=== PATIENT | female | born 1945 | race Caucasian/White ===

== ENCOUNTER 2016-12-02 10:16 | Day surgery (SDC) | payer MEDICARE ==
[2016-12-01 08:53] VITALS: BMI 19.2
[~2016-12-02 10:16] MED LIST: KETOROLAC 30 MG/ML 1 ML VIAL ONE; LACTATED RINGERS 1,000 ML IV SCH; ONDANSETRON 4 MG/2 ML VIAL ONE; PROPOFOL 10 MG/ML 20 ML VIAL IV ONE; fentaNYL (PF) 50 MCG/ML 2 ML AMP ONE
[2016-12-02 10:56] VITALS: RESP 18; TEMP 97.4
[2016-12-02] MEDS ORDERED: LIDOCAINE 1% 20 ML VIAL (10MG/ML) FOR IV START INTRADERMA ONE (10:59)
[2016-12-02] MEDS ORDERED: PROPOFOL 10 MG/ML 20 ML VIAL IV ONE (12:23)
[2016-12-02] MEDS ORDERED: LIDOCAINE 1% INJ 10MG/ML (20 ML MDV) ONE (12:23)
--- NOTE | 2016-12-02 12:44 | P.PCN ---
Date of Procedure: 12/02/16 Procedure(s) Performed: Procedure: Total colonoscopy. Preoperative diagnosis: Screening for neoplasia, patient has history of polyps. Postoperative diagnosis: Sigmoid diverticulosis with no evidence of acute diverticulitis, strictures, polyps or cancer. Preparation: HalfLytely prep. Sedation: Was provided by anesthesia. Brief clinical history: The patient is 71-year-old female who is scheduled for this evaluation for screening for neoplasia, age being her risk factor as well as history of polyps. Her last exam was in 05/2011. At this time, she has no abdominal complaints, bleeding or anemia. Procedure: With the patient on her left lateral decubitus position and after informed consent and adequate sedation, the perianal area was inspected and it did not show any fissures or fistulas. There were no masses felt on digital rectal examination. The Olympus CFQ 160L video colonoscope was then inserted in the rectum in the usual fashion and advanced to the cecum. There were several diverticular orifices seen scattered in the sigmoid with no evidence of acute diverticulitis or strictures. No polyps or tumors were seen. I retroflexed the endoscope in the rectum before the endoscope was withdrawn. Low -grade internal hemorrhoids were noted with no evidence of bleeding. The patient tolerated the procedure well. Plan: The patient was reassured. She will follow-up with you as planned and I recommended repeat exam in 5 years.
[2016-12-02 13:04] VITALS: BP 124/68; PULSE 66
== END 2016-12-02 13:23 | disposition home or self-care (01) ==
LOC: ORWHC2ENDO 10:16
DX: Z12.11 Encounter for screening for malignant neoplasm of colon (principal); K57.30 Diverticulosis of large intestine without perforation or abscess without bleeding; K64.8 Other hemorrhoids; Z86.010 Personal history of colon polyps; I10 Essential (primary) hypertension; E07.9 Disorder of thyroid, unspecified; Z79.899 Other long term (current) drug therapy
CPT/HCPCS: J2405; J2001; J3010; J1885; J2704; G0105

== ENCOUNTER → 2016-12-05 | Outpatient (CLI) | payer MEDICARE ==
--- NOTE | 2016-12-08 12:03 | MM ---
Reason for exam: screening (asymptomatic). Last mammogram was performed 1 year ago. History: Patient is postmenopausal, has history of breast cancer at age 60, and had previous chest radiation therapy at age 60. Radiation therapy of the left breast, March 2006. Excisional biopsy of the left breast, December 09, 2005. Malignant left US cyst aspiration of the left breast, November 13, 2005. Malignant US left guided mammotome of the left breast, November 13, 2005. Benign core biopsy of the right breast, August 11, 1996. Benign stereotactic core biopsy of the right breast, August 11, 1996. Benign stereotactic core biopsy of the right breast, August 11, 1996. Took hormonal contraceptives for 2 years beginning at age 18. Took estrogen for 10 years beginning at age 43. Took progesterone for 10 years beginning at age 43. Physical Findings: A clinical breast exam by your physician is recommended on an annual basis and results should be correlated with mammographic findings. MG 3D Screening Mammo W/Cad Bilateral CC and MLO view(s) were taken. Prior study comparison: December 05, 2015, bilateral MG 3d diag mammo w/cad [facility]. November 15, 2014, bilateral MG diagnostic mammo w CAD [facility]. The breast tissue is heterogeneously dense. This may lower the sensitivity of mammography. Biopsy change in the left breast. No significant changes when compared with prior studies. ASSESSMENT: Benign, BI-RAD 2 RECOMMENDATION: Routine screening mammogram of both breasts in 1 year.
== END | disposition home or self-care (01) ==
LOC: RADMAMWWP 09:22
PROVIDERS: ATTEND Family Medicine
DX: Z12.31 Encounter for screening mammogram for malignant neoplasm of breast (principal)
CPT/HCPCS: 77063; G0202

== ENCOUNTER → 2018-01-12 | Outpatient (CLI) | payer MEDICARE ==
--- NOTE | 2018-01-12 14:09 | MM ---
Reason for exam: additional evaluation requested from prior study. Last mammogram was performed 1 year and 1 month ago. History: Patient is postmenopausal, has history of breast cancer at age 60, and had previous chest radiation therapy at age 60. Radiation therapy of the left breast, March 2006. Excisional biopsy of the left breast, December 09, 2005. Malignant left US cyst aspiration of the left breast, November 13, 2005. Malignant US left guided mammotome of the left breast, November 13, 2005. Benign core biopsy of the right breast, August 11, 1996. Benign stereotactic core biopsy of the right breast, August 11, 1996. Benign stereotactic core biopsy of the right breast, August 11, 1996. Took hormonal contraceptives for 2 years beginning at age 18. Took estrogen for 10 years beginning at age 43. Took progesterone for 10 years beginning at age 43. Physical Findings: Nurse did not find any significant physical abnormalities on exam. MG 3D Diag Mammo W/Cad [facility] Bilateral CC and MLO view(s) were taken. CC with magnification and ML with magnification view(s) were taken of the left breast. Prior study comparison: December 05, 2016, bilateral MG 3d screening mammo w/cad. December 05, 2015, bilateral MG 3d diag mammo w/cad [facility]. There are scattered fibroglandular densities. Finding: There are 3 grouped/clustered fine calcifications in the upper outer quadrant, middle position of the left breast at biopsy site. Post surgical changes in the left breast. These results were verbally communicated with the patient and result sheet given to the patient on 01/12/18. ASSESSMENT: Probably benign, BI-RAD 3 RECOMMENDATION: Follow-up diagnostic mammogram of the left breast in 6 months.
== END | disposition home or self-care (01) ==
LOC: RADMAMWWP 12:47
PROVIDERS: ATTEND Family Medicine
DX: Z08 Encounter for follow-up examination after completed treatment for malignant neoplasm (principal); Z85.3 Personal history of malignant neoplasm of breast
CPT/HCPCS: 77066; G0279; 77062

== ENCOUNTER → 2018-08-11 | Outpatient (CLI) | payer MEDICARE ==
--- NOTE | 2018-08-11 14:06 | MM ---
Reason for exam: follow-up at short interval from prior study. Last mammogram was performed 7 months ago. History: Patient is postmenopausal, has history of breast cancer at age 60, and had previous chest radiation therapy at age 60. Radiation therapy of the left breast, March 2006. Excisional biopsy of the left breast, December 09, 2005. Malignant left US cyst aspiration of the left breast, November 13, 2005. Malignant US left guided mammotome of the left breast, November 13, 2005. Benign core biopsy of the right breast, August 11, 1996. Benign stereotactic core biopsy of the right breast, August 11, 1996. Benign stereotactic core biopsy of the right breast, August 11, 1996. Took hormonal contraceptives for 2 years beginning at age 18. Took estrogen for 10 years beginning at age 43. Took progesterone for 10 years beginning at age 43. Physical Findings: Nurse did not find any significant physical abnormalities on exam. MG 3D Diag Mammo W/Cad LT CC and MLO view(s) were taken of the left breast. Prior study comparison: January 12, 2018, bilateral MG 3d diag mammo w/cad [facility]. December 05, 2016, bilateral MG 3d screening mammo w/cad. The breast tissue is heterogeneously dense. This may lower the sensitivity of mammography. There are benign appearing stable punctate left breast calcifications. No suspicious abnormality. Post therapy changes on the left. These results were verbally communicated with the patient and result sheet given to the patient on 08/11/18. ASSESSMENT: Benign, BI-RAD 2 RECOMMENDATION: Follow-up diagnostic mammogram of both breasts in 5 months. Back on schedule for January 2019.
== END | disposition home or self-care (01) ==
LOC: RADMAMWWP 12:47
PROVIDERS: ATTEND Family Medicine
DX: R92.8 Other abnormal and inconclusive findings on diagnostic imaging of breast (principal); Z85.3 Personal history of malignant neoplasm of breast
CPT/HCPCS: 77065; G0279; 77061

== ENCOUNTER → 2019-03-21 | Outpatient (CLI) | payer MEDICARE ==
--- NOTE | 2019-03-22 08:22 | MM ---
Reason for exam: follow-up at short interval from prior study. Last mammogram was performed 7 months ago. History: Patient is postmenopausal, has history of breast cancer at age 60, and had previous chest radiation therapy at age 60. Radiation therapy of the left breast, March 2006. Excisional biopsy of the left breast, December 09, 2005. Malignant left US cyst aspiration of the left breast, November 13, 2005. Malignant US left guided mammotome of the left breast, November 13, 2005. Benign core biopsy of the right breast, August 11, 1996. Benign stereotactic core biopsy of the right breast, August 11, 1996. Benign stereotactic core biopsy of the right breast, August 11, 1996. Took hormonal contraceptives for 2 years beginning at age 18. Took estrogen for 10 years beginning at age 43. Took progesterone for 10 years beginning at age 43. Physical Findings: Nurse did not find any significant physical abnormalities on exam. MG 3D Diag Mammo W/Cad [facility] Bilateral CC and MLO view(s) were taken. Prior study comparison: August 11, 2018, left breast MG 3d diag mammo w/cad LT. January 12, 2018, bilateral MG 3d diag mammo w/cad [facility]. The breast tissue is heterogeneously dense. This may lower the sensitivity of mammography. No suspicious abnormality. Post therapy change on the left. Stable right upper outer quadrant middle depth round mass. These results were verbally communicated with the patient and result sheet given to the patient on 03/21/19. ASSESSMENT: Benign, BI-RAD 2 RECOMMENDATION: Routine screening mammogram of both breasts in 1 year.
--- NOTE | 2019-03-22 09:36 | BD ---
EXAMINATION TYPE: Axial Bone Density DATE OF EXAM: 03/21/2019 COMPARISON: 04/15/2011 CLINICAL HISTORY: Z 78.0 Height: 62.5 IN Weight: 122 LBS FRAX RISK QUESTIONS: Secondary Osteoporosis: 2. Hyperthyroidism: YES 3. Menopause before 45: AGE 25 RISK FACTORS HISTORY OF: Active: YES Postmenopausal woman: AGE 25; PART HYST AGE 69 Take estrogen and/or progesterone medications: NOT NOW How long: B.C AGE 20-22; ESTROGEN AND PROGESTERONE AGE 45-55 MEDICATIONS: Thyroid Medications: YES Which medication: Levothyroxine How Long: SINCE 1987 Additional Medications: CALCIUM, LEVOTHYROXINE, MULTI VIT, BLOOD PRESSURE MEDS, Additional History: BREAST CANCER AGE 60 WITH RADIATION EXAM MEASUREMENTS: Bone mineral densitometry was performed using the [employer] System. Bone mineral density as measured about the Lumbar spine is: ----- L1-L4(G/cm2): 0.989 T Score Values are as follows: ----- L2: -2.7 ----- L3: -0.8 ----- L4: -0.5 ----- L1-L4: -1.6 Bone mineral density has: Increased 1.8% since study of: 04/15/2011 Bone mineral density about the R hip (g/cm2): 0.804 Bone mineral density about the L hip (g/cm2): 0.739 T Score values are as follows: -----R Neck: -1.7 -----L Neck: -2.2 -----R Total: -1.5 -----L Total: -1.8 Bone mineral density has: Decreased -9.5% since study of: 04/15/2011 IMPRESSION: Osteopenia (T Score between -2.5 and -1). There is slightly increased risk of fracture and the patient may be considered for treatment. Re-Screen 2-5 years. NOTE: T-SCORE=SD OF THE YOUNG ADULT MEAN.
== END | disposition home or self-care (01) ==
LOC: RADMAMWWP 14:59
PROVIDERS: ATTEND Nurse Practitioner Family
DX: Z08 Encounter for follow-up examination after completed treatment for malignant neoplasm (principal); M85.80 Other specified disorders of bone density and structure, unspecified site; Z85.3 Personal history of malignant neoplasm of breast
CPT/HCPCS: 77080; 77066; G0279; 77062

== ENCOUNTER → 2020-05-17 | Outpatient (CLI) | payer MEDICARE ==
--- NOTE | 2020-05-17 12:13 | MM ---
Reason for exam: additional evaluation requested from prior study. Last mammogram was performed 1 year and 2 months ago. History: Patient is postmenopausal, has history of breast cancer at age 60, and had previous chest radiation therapy at age 60. Radiation therapy of the left breast, March 2006. Excisional biopsy of the left breast, December 09, 2005. Malignant left US cyst aspiration of the left breast, November 13, 2005. Malignant US left guided mammotome of the left breast, November 13, 2005. Benign core biopsy of the right breast, August 11, 1996. Benign stereotactic core biopsy of the right breast, August 11, 1996. Benign stereotactic core biopsy of the right breast, August 11, 1996. Took hormonal contraceptives for 2 years beginning at age 18. Took estrogen for 10 years beginning at age 43. Took progesterone for 10 years beginning at age 43. Physical Findings: Nurse did not find any significant physical abnormalities on exam. MG 3D Diag Mammo W/Cad [facility] Bilateral CC and MLO view(s) were taken. Prior study comparison: March 21, 2019, bilateral MG 3d diag mammo w/cad [facility]. August 11, 2018, left breast MG 3d diag mammo w/cad LT. The breast tissue is heterogeneously dense. This may lower the sensitivity of mammography. Finding #1: Architectural distortion in the upper outer quadrant of the left breast. Finding #2: There are typically benign calcifications in the right breast. Post operative changes left breast. These results were verbally communicated with the patient and result sheet given to the patient on 05/17/20. ASSESSMENT: Benign, BI-RAD 2 RECOMMENDATION: Follow-up diagnostic mammogram of both breasts in 1 year.
== END ==
LOC: RADMAMWWP 10:36
PROVIDERS: ATTEND Family Medicine
DX: R92.2 Inconclusive mammogram (principal); Z85.3 Personal history of malignant neoplasm of breast
CPT/HCPCS: 77066; G0279; 77062

== ENCOUNTER → 2021-02-26 | Outpatient (CLI) | payer MEDICARE ==
[2021-02-27 13:13] LABS: Avocado Class CLASS 0; Banana IgE Class CLASS 0; Cow's Milk IgE Class CLASS 0; Egg White IgE <0.10 kU/L (<0.10); Hazelnut IgE <0.10 kU/L (<0.10); Hazelnut IgE Class CLASS 0; Kiwi IgE <0.10 kU/L (<0.10); Kiwi IgE Class CLASS 0; Latex IgE Class CLASS 0; Peanut IgE 0.52 kU/L (<0.10); Potato IgE <0.10 kU/L (<0.10); Potato IgE Class CLASS 0; Soybean IgE <0.10 kU/L (<0.10); Yeast Bakers/Brew IgE <0.10 kU/L (<0.10); Yeast Bakers/Brew IgE Class CLASS 0
== END | disposition home or self-care (01) ==
LOC: LABWHC1 10:23
PROVIDERS: ATTEND Otolaryngology
DX: L50.0 Allergic urticaria (principal)
CPT/HCPCS: 36415; 86001; 86003

== ENCOUNTER → 2021-05-20 | Outpatient (CLI) | payer MEDICARE ==
--- NOTE | 2021-05-20 11:26 | MM ---
Reason for exam: additional evaluation requested from prior study. Last mammogram was performed 1 year ago. History: Patient is postmenopausal, has history of breast cancer at age 60, and had previous chest radiation therapy at age 60. Radiation therapy of the left breast, March 2006. Excisional biopsy of the left breast, December 09, 2005. Malignant left US cyst aspiration of the left breast, November 13, 2005. Malignant US left guided mammotome of the left breast, November 13, 2005. Benign core biopsy of the right breast, August 11, 1996. Benign stereotactic core biopsy of the right breast, August 11, 1996. Benign stereotactic core biopsy of the right breast, August 11, 1996. Took hormonal contraceptives for 2 years beginning at age 18. Took estrogen for 10 years beginning at age 43. Took progesterone for 10 years beginning at age 43. Physical Findings: A clinical breast exam by your physician is recommended on an annual basis and results should be correlated with mammographic findings. MG 3D Diag Mammo W/Cad [facility] Bilateral CC and MLO view(s) were taken. Prior study comparison: May 17, 2020, bilateral MG 3d diag mammo w/cad [facility]. March 21, 2019, bilateral MG 3d diag mammo w/cad [facility]. The breast tissue is heterogeneously dense. This may lower the sensitivity of mammography. Stable post operative changes in the left breast. No significant new findings when compared with previous films. These results were verbally communicated with the patient and result sheet given to the patient on 05/20/21. ASSESSMENT: Benign, BI-RAD 2 RECOMMENDATION: Routine screening mammogram of both breasts in 1 year.
== END | disposition home or self-care (01) ==
LOC: RADMAMWWP 10:06
PROVIDERS: ATTEND Family Medicine
DX: Z12.31 Encounter for screening mammogram for malignant neoplasm of breast (principal); Z85.3 Personal history of malignant neoplasm of breast
CPT/HCPCS: 77066; G0279; 77062

== ENCOUNTER → 2022-05-21 | Outpatient (CLI) | payer MEDICARE ==
--- NOTE | 2022-05-21 09:21 | MM ---
Reason for Exam: Hx of cancer, neoadjuvant chemotherapy. Last screening mammogram was performed 12 month(s) ago. Patient History: Menarche at age 10. First Full-Term at age 18. Postmenopausal. Patient has history of breast feeding. Breast cancer, left, age 60. Previous chest radiation therapy at age 60. Estrogen for 10 years from age 43 until age 53. Progesterone for 10 years from age 43 until age 53. Hormonal Contraceptives for 2 years from age 18 until age 20. 12/09/2005, Excisional Biopsy on the Left side. 11/13/2005, Malignant Core Biopsy on the left side. 11/13/2005, Malignant Cyst Aspiration on the left side. 08/11/1996, Benign Core Biopsy on the right side. 08/11/1996, Benign Stereotactic Core Biopsy on the right side. 08/11/1996, Benign Stereotactic Core Biopsy on the right side. 03/2006, Radiation Therapy on the left side. Prior Study Comparison: 12/05/2015 Bilateral Diagnostic Mammogram, [facility]. 12/05/2016 Bilateral Screening Mammogram, [facility]. 01/12/2018 Bilateral Diagnostic Mammogram, [facility]. 08/11/2018 Left Diagnostic Mammogram, [facility]. 03/21/2019 Bilateral Diagnostic Mammogram, [facility]. 05/17/2020 Bilateral Diagnostic Mammogram, [facility]. 05/20/2021 Bilateral Diagnostic Mammogram, [facility]. Tissue Density: There are scattered fibroglandular densities. Findings: Analyzed By CAD. Postsurgical and posttreatment change redemonstrated breast. Bilateral asymmetric densities remain unchanged. An area of nodular focal asymmetry appears to localize to the upper outer periareolar right breast. It may have been present on the 201903/28/2017 exam but not as well-seen on the 2021 exam. Ultrasound recommended. Overall Assessment: Incomplete: need additional imaging evaluation, BI-RAD 0 Management: Diagnostic Breast Ultrasound of the right breast. Upper outer quadrant periareolar right breast. Electronically signed and approved by: Najma Palomares M.D. Radiologist
--- NOTE | 2022-05-21 09:55 | USB ---
Reason for Exam: Additional evaluation requested from abnormal screening. Patient History: Menarche at age 10. First Full-Term at age 18. Postmenopausal. Patient has history of breast feeding. Breast cancer, left, age 60. Previous chest radiation therapy at age 60. Estrogen for 10 years from age 43 until age 53. Progesterone for 10 years from age 43 until age 53. Hormonal Contraceptives for 2 years from age 18 until age 20. 12/09/2005, Excisional Biopsy on the Left side. 11/13/2005, Malignant Core Biopsy on the left side. 11/13/2005, Malignant Cyst Aspiration on the left side. 08/11/1996, Benign Core Biopsy on the right side. 08/11/1996, Benign Stereotactic Core Biopsy on the right side. 08/11/1996, Benign Stereotactic Core Biopsy on the right side. 03/2006, Radiation Therapy on the left side. Technique: Method: Targeted. Prior Study Comparison: 03/21/2019 Bilateral Diagnostic Mammogram, [facility]. 05/17/2020 Bilateral Diagnostic Mammogram, [facility]. 05/20/2021 Bilateral Diagnostic Mammogram, [facility]. Findings: The lateral section of the breast of the right breast, the axilla of the right breast and the retroareolar of the right breast were scanned. Electronically signed and approved by: Najma Palomares M.D. Radiologist
== END | disposition home or self-care (01) ==
LOC: RADMAMWWP 08:37
PROVIDERS: ATTEND Family Medicine
DX: R92.2 Inconclusive mammogram (principal); Z85.3 Personal history of malignant neoplasm of breast; Z78.0 Asymptomatic menopausal state
CPT/HCPCS: 77066; 76642; G0279; 77062

== ENCOUNTER → 2023-06-16 | Outpatient (CLI) | payer MEDICARE ==
--- NOTE | 2023-06-16 11:04 | MM ---
Reason for Exam: Hx of breast cancer, conservation therapy. Last mammogram was performed 1 year(s) and 1 month(s) ago. Patient History: Menarche at age 10. First Full-Term at age 18. Postmenopausal. Patient has history of breast feeding. Breast cancer, left, age 60. Previous chest radiation therapy at age 60. Estrogen for 10 years from age 43 until age 53. Progesterone for 10 years from age 43 until age 53. Hormonal Contraceptives for 2 years from age 18 until age 20. 12/09/2005, Excisional Biopsy on the Left side. 11/13/2005, Malignant Core Biopsy on the left side. 11/13/2005, Malignant Cyst Aspiration on the left side. 08/11/1996, Benign Core Biopsy on the right side. 08/11/1996, Benign Stereotactic Core Biopsy on the right side. 08/11/1996, Benign Stereotactic Core Biopsy on the right side. 03/2006, Radiation Therapy on the left side. Prior Study Comparison: 12/05/2016 Bilateral Screening Mammogram, [facility]. 01/12/2018 Bilateral Diagnostic Mammogram, [facility]. 08/11/2018 Left Diagnostic Mammogram, [facility]. 03/21/2019 Bilateral Diagnostic Mammogram, [facility]. 05/17/2020 Bilateral Diagnostic Mammogram, [facility]. 05/20/2021 Bilateral Diagnostic Mammogram, [facility]. 05/21/2022 Bilateral MG 3D diag mammo w/cad LUCIANA, [facility]. 12/22/2022 Right MG 3D diag mammo w/cad RT, [facility]. Tissue Density: The breasts are heterogeneously dense, which may obscure small masses. Findings: Analyzed By CAD. Postlumpectomy changes left breast. No evidence for recurrent or residual mass. Benign calcification right breast. No evidence for mass or distortion of the right breast. Overall Assessment: Benign, BI-RAD 2 Management: Diagnostic Mammogram of both breasts in 1 year. . Results were given to the patient verbally at the time of exam. Patient should continue monthly self-breast exams. A clinical breast exam by your physician is recommended on an annual basis. This exam should not preclude additional follow-up of suspicious palpable abnormalities. Note on Tavia scores and lifetime risk: 1. A Tavia score greater than 3% is considered moderate risk. If this is the case, consider specialist referral to assess eligibility for a risk reducing agent. 2. If overall lifetime risk for the development of breast cancer is 20% or higher, the patient may qualify for future screening with alternating mammogram and breast MRI. Electronically signed and approved by: Chapin Hazel M.D. Radiologis
--- NOTE | 2023-06-16 12:51 | BD ---
EXAMINATION TYPE: Axial Bone Density DATE OF EXAM: 06/16/2023 CLINICAL HISTORY: 77 years old Female. ICD-10 CODE: Z78.0 ASYMPTOMATIC MENOPAUSAL STATE Height: 62.5 Weight: 123.1 FRAX RISK QUESTIONS: Alcohol (3 or more units per day): no Family History (Parent hip fracture): no Glucocorticoids (More than 3mos): no (Ex: prednisone, prednisolone, methylprednisolone, dexamethasone, and hydrocortisone). History of Fracture in Adulthood: no Secondary Osteoporosis: 1. Type 1 Diabetes: no 2. Hyperthyroidism: no 3. Menopause before 45: yes 4. Malnutrition: no 5. Chronic liver disease: no Rheumatoid Arthritis: no Current Tobacco Use: no RISK FACTORS HISTORY OF: Hip Fracture (Right/Left): no Spine Fracture: no History of Wrist Fracture: no Surgery to Spine/Hip(right/left)/Wrist (right/left): no MEDICATIONS: Thyroid Medications: Levothyroxin How Long: past 35 years Osteoporosis Medications: no EXAM MEASUREMENTS: Bone mineral densitometry was performed using the [employer] System. Bone mineral density as measured about the Lumbar spine is: ----- L1-L4(G/cm2): 1.085 T Score Values are as follows: ----- L1: -1.1 ----- L2: -1.8 ----- L3: -0.8 ----- L4: -0.1 ----- L1-L4: -0.8 Z Score Values are as follows: ----- L1: 1.1 ----- L2: 0.4 ----- L3: 1.3 ----- L4: 2.0 ----- L1-L4: 1.3 Bone mineral density has: increased 9.7 % since study of: 03/21/2019 Bone mineral density about the R hip (g/cm2): 0.828 Bone mineral density about the L hip (g/cm2): 0.873 T Score values are as follows: -----R Neck: -1.5 -----L Neck: -2.0 -----R Total: -1.4 -----L Total: -1.8 Z Score values are as follows: -----R Neck: 0.8 -----L Neck: 0.3 -----R Total: 0.8 -----L Total: 0.4 Bone mineral density has: increased 0.5 % since study of: 03/21/2019 FRAX%s: The graph provided illustrates a 14.7% chance for a major osteoporotic fx and a 4.5% chance f or the hips probability for fx in 10 years time. IMPRESSION: Osteopenia (T Score between -2.5 and -1). There is slightly increased risk of fracture and the patient may be considered for treatment. Re-Screen 2-5 years. NOTE: T-SCORE=SD OF THE YOUNG ADULT MEAN.
== END | disposition home or self-care (01) ==
LOC: RADMAMWWP 10:13
PROVIDERS: ATTEND Family Medicine
DX: M85.89 Other specified disorders of bone density and structure, multiple sites (principal); R92.1 Mammographic calcification found on diagnostic imaging of breast; R92.333 Mammographic heterogeneous density, bilateral breasts; Z85.3 Personal history of malignant neoplasm of breast; Z78.0 Asymptomatic menopausal state
CPT/HCPCS: 77080; 77066; G0279; 77062

== ENCOUNTER → 2023-06-16 | Outpatient (CLI) | payer MEDICARE | END | disposition home or self-care (01) | LOC: RADBDWWP 10:11 | PROVIDERS: ATTEND Family Medicine | DX: Z53.9 Procedure and treatment not carried out, unspecified reason (principal) ==

== ENCOUNTER → 2024-07-06 | Outpatient (CLI) | payer MEDICARE ==
--- NOTE | 2024-07-06 10:55 | MM ---
Reason for Exam: Hx of breast cancer, conservation therapy. Last screening mammogram was performed 12 month(s) ago. Patient History: Menarche at age 10. First Full-Term at age 18. Postmenopausal. Patient has history of breast feeding. Breast cancer, left, age 60. Previous chest radiation therapy at age 60. Estrogen for 10 years from age 43 until age 53. Progesterone for 10 years from age 43 until age 53. Hormonal Contraceptives for 2 years from age 18 until age 20. 12/09/2005, Excisional Biopsy on the Left side. 11/13/2005, Malignant Core Biopsy on the left side. 11/13/2005, Malignant Cyst Aspiration on the left side. 08/11/1996, Benign Core Biopsy on the right side. 08/11/1996, Benign Stereotactic Core Biopsy on the right side. 08/11/1996, Benign Stereotactic Core Biopsy on the right side. 03/2006, Radiation Therapy on the left side. Prior Study Comparison: 01/12/2018 Bilateral Diagnostic Mammogram, [facility]. 08/11/2018 Left Diagnostic Mammogram, [facility]. 03/21/2019 Bilateral Diagnostic Mammogram, [facility]. 05/17/2020 Bilateral Diagnostic Mammogram, [facility]. 05/20/2021 Bilateral Diagnostic Mammogram, [facility]. 05/21/2022 Bilateral MG 3D diag mammo w/cad LUC[facility], [facility]. 12/22/2022 Right MG 3D diag mammo w/cad RT, [facility]. 06/16/2023 Bilateral MG 3D diag mammo w/cad L[facility], [facility]. Tissue Density: There are scattered areas of fibroglandular density. Findings: Analyzed By CAD. Posttreatment changes in the left breast with stable distortion and surgical clips middle to posterior depth is redemonstrated. No suspicious new mass or worrisome cluster of microcalcification in either breast. Overall Assessment: Benign, BI-RAD 2 Management: Screening Mammogram of both breasts in 1 year. . Results were given to the patient verbally at the time of exam. Patient should continue monthly self-breast exams. A clinical breast exam by your physician is recommended on an annual basis. This exam should not preclude additional follow-up of suspicious palpable abnormalities. Note on Tavia scores and lifetime risk: 1. A Tavia score greater than 3% is considered moderate risk. If this is the case, consider specialist referral to assess eligibility for a risk reducing agent. 2. If overall lifetime risk for the development of breast cancer is 20% or higher, the patient may qualify for future screening with alternating mammogram and breast MRI. [facility], , 07/06/2024 10:52 AM. Electronically signed and approved by: Carroll Lazo M.D.
== END | disposition home or self-care (01) ==
LOC: RADMAMWWP 10:18
PROVIDERS: ATTEND Family Medicine
DX: R92.323 Mammographic fibroglandular density, bilateral breasts (principal); Z85.3 Personal history of malignant neoplasm of breast; Z78.0 Asymptomatic menopausal state; Z92.0 Personal history of contraception
CPT/HCPCS: 77062; 77066

== ENCOUNTER 2024-07-07 10:11 | Observation (INO) | payer MEDICARE ==
[2024-07-07] MEDS ORDERED: HEPARIN SODIUM 1,000 UN/ML (10ML VL) IV PRN (10:32)
--- NOTE | 2024-07-07 10:56 | XR ---
EXAMINATION TYPE: XR chest 2V DATE OF EXAM: 07/07/2024 10:49 AM COMPARISON: None CLINICAL INDICATION: Female, 78 years old with history of dysrhythmia, , TECHNIQUE: PA and lateral views FINDINGS: The cardiomediastinal silhouette, aorta, and pulmonary vasculature are within normal limits. Hyperinf lation. No consolidation or pleural effusion. IMPRESSION: Hyperinflation may relate to depth of inspiration or underlying emphysema. Clinically correlate. Othe rwise, no acute process is seen. [facility], , 07/07/2024 10:54 AM
[2024-07-07 10:57] LABS: Basophils # (A) 0.03 10*3/uL (0.00-0.10); Basophils % (A) 0.5 %; Eosinophils # (A) 0.07 10*3/uL (0.04-0.35); Eosinophils % (A) 1.1 %; HCT 44.2 % (37.2-46.3); HGB 15.2 g/dL (12.0-15.0); Lymphocytes # (A) 1.03 10*3/uL (0.90-5.00); MCH 33.6 pg (27.0-32.0); MCHC 34.4 g/dL (32.0-37.0); MCV 97.6 fL (80.0-97.0); Mean Platelet Volume 8.7 fL (9.5-12.2); Monocytes # (A) 0.57 10*3/uL (0.20-1.00); Monocytes % (A) 8.9 %; Neutrophils # (A) 4.71 10*3/uL (1.80-7.70); Neutrophils % (A) 73.2 %; Platelet Count 370 10*3/uL (140-440); RBC 4.53 10*6/uL (4.10-5.20); RDW 11.9 % (11.5-14.5); WBC 6.43 10*3/uL (4.50-10.00)
[2024-07-07] MEDS: DILTIAZEM 5 MG/ML 5 ML VIAL IVP STA (10:58)
[2024-07-07] MEDS: DILTIAZEM 125 MG in DEXTROSE 5% IN WATER 100 ML IV SCH (11:01)
[2024-07-07] MEDS: HEPARIN SODIUM 1,000 UN/ML (10ML VL) IV ONE (11:01)
[2024-07-07] MEDS: HEPARIN SOD,PORK IN 0.45% NACL 25,000 UNIT in 0.45% NACL 1 250ML.BAG IV SCH (11:02)
[2024-07-07] MEDS: SODIUM CHLORIDE 0.9% 500 ML 500 ML IV STA (11:03)
[2024-07-07 11:19] LABS: INR 0.9 (<1.2); Prothrombin Time 10.1 sec (10.0-12.5)
[2024-07-07 11:26] LABS: Partial Thromboplastin Time 21.6 sec (22.0-30.0)
[2024-07-07 11:36] LABS: ALT 21 U/L (4-34); AST 30 U/L (14-36); African American GFR (CKD) >90 (>60 ml/min/1.73 sqM); Albumin 4.9 g/dL (3.5-5.0); Alkaline Phosphatase 56 U/L (38-126); Anion Gap 14 mmol/L; Blood Urea Nitrogen 21 mg/dL (7-17); Calcium 10.3 mg/dL (8.4-10.2); Carbon Dioxide 23 mmol/L (22-30); Chloride 98 mmol/L (98-107); Glucose 82 mg/dL (74-99); Magnesium 1.9 mg/dL (1.6-2.3); Non-African American GFR(CKD) 85 (>60 ml/min/1.73 sqM); Potassium 4.1 mmol/L (3.5-5.1); Sodium 135 mmol/L (137-145); Total Bilirubin 0.7 mg/dL (0.2-1.3); Total Protein 8.1 g/dL (6.3-8.2)
[2024-07-07] MEDS ORDERED: NITROGLYCERIN SL TABS 0.4 MG TAB SUBLINGUAL PRN (12:58)
--- NOTE | 2024-07-07 12:58 | ED ---
Arrhythmia/Palpitations HPI - General Chief Complaint: Arrhythmia/Palpitations Stated Complaint: abn labs Time Seen by Provider: 07/07/24 10:21 Source: patient, RN notes reviewed Mode of arrival: ambulatory Limitations: no limitations - History of Present Illness Initial Comments: 78-year-old female presents emergency department with chief complaint of A-fib. Patient was sent in by PCP. Patient has not really noticed any symptoms but states that her blood pressure was elevated she followed up for recheck and states that they found her to be in A-fib. Patient states that she has no history has no chest pain currently. Patient occasion she does feel winded or more out of breath than usual. No abdominal pain no leg swelling. - Related Data Home Medications Medication Instructions Recorded Confirmed Levothyroxine Sodium [Synthroid] 88 mcg PO DAILY 07/07/24 07/07/24 Losartan [Cozaar] 50 mg PO DAILY 07/07/24 07/07/24 hydroCHLOROthiazide [Hydrodiuril] 25 mg PO DAILY 07/07/24 07/07/24 Allergies Allergy/AdvReac Type Severity Reaction Status Date / Time No Known Allergies Allergy Verified 07/07/24 12:11 Review of Systems ROS Statement: Those systems with pertinent positive or pertinent negative responses have been documented in the HPI. ROS Other: All systems not noted in ROS Statement are negative. Past Medical History Past Medical History: Cancer, Hypertension, Thyroid Disorder Additional Past Medical History / Comment(s): BREAST CANCER, History of Any Multi-Drug Resistant Organisms: None Reported Past Surgical History: Breast Surgery, Hysterectomy Additional Past Surgical History / Comment(s): LT BREAST LUMPECTOMY-2006, COLONOSCOPY, A&P repair, eye surgery as child, Past Anesthesia/Blood Transfusion Reactions: No Reported Reaction Past Psychological History: No Psychological Hx Reported Smoking Status: Former smoker Past Alcohol Use History: Occasional Past Drug Use History: None Reported - Past Family History Mother Family Medical History: No Reported History General Exam Limitations: no limitations General appearance: alert, in no apparent distress Head exam: Present: atraumatic, normocephalic, normal inspection Eye exam: Present: normal appearance, PERRL, EOMI. Absent: scleral icterus, conjunctival injection, periorbital swelling ENT exam: Present: normal exam, normal oropharynx, mucous membranes moist Neck exam: Present: normal inspection, full ROM. Absent: tenderness, meningi smus, lymphadenopathy Respiratory exam: Present: normal lung sounds bilaterally. Absent: respiratory distress, wheezes, rales, rhonchi, stridor Cardiovascular Exam: Present: tachycardia, irregular rhythm, normal heart sounds. Absent: regular rate, normal rhythm, systolic murmur, diastolic murmur, rubs, gallop, clicks GI/Abdominal exam: Present: soft, normal bowel sounds. Absent: distended, tenderness, guarding, rebound, rigid Course Vital Signs 07/07/24 07/07/24 07/07/24 10:15 11:05 11:21 Temperature 97.5 F L Pulse Rate 140 H 80 62 Respiratory 18 18 Rate Blood Pressure 116/74 118/76 O2 Sat by Pulse 98 99 Oximetry 07/07/24 07/07/24 11:32 12:10 Temperature Pulse Rate 64 64 Respiratory 16 16 Rate Blood Pressure 131/67 111/72 O2 Sat by Pulse 99 97 Oximetry EKG Findings - EKG Comments: EKG Findings:: EKG performed at 10: 32 A-fib with RVR rate of 123 QRS 86/369. Repeat EKG 1125 sinus rhythm rate of 62 OH 191 QRS 92 QT/QTc 410/414 - EKG Results: EKG: interpreted by CRISTIANA Medical Decision Making - Medical Decision Making Was pt. sent in by a medical professional or institution (Dr. PA, DOUGH CUTTER, urgent care, hospital, or [facility]...) When possible be specific @ -pcp Did you speak to anyone other than the patient for history (EMS, parent, family, police, friend...)? What history was obtained from this source @ -No Did you review nursing and triage notes (agree or disagree)? Why? @ -I reviewed and agree with nursing and triage notes Were old charts reviewed (outside hosp., previous admission, EMS record, old EKG, old radiological studies, urgent care reports/EKG's, [facility] records)? Report findings @ -No old charts were reviewed Differential Diagnosis (chest pain, altered mental status, abdominal pain women, abdominal pain men, vaginal bleeding, weakness, fever, dyspnea, syncope, headache, dizziness, GI bleed, back pain, seizure, CVA, palpatations, mental health, musculoskeletal)? @ -Differential Palpitations Ventricular arrhythmias, atrial arrhythmias, myocardial infarction, anemia, thyrotoxicosis, electrolyte imbalance, hypokalemia, pulmonary embolism, pulmonary disease, drugs, alcohol, anxiety, stress.... This is not meant to be an all-inclusive list. EKG interpreted by me (3pts min.). @ -As above X-rays interpreted by me (1pt min.). @ -Chest x-ray shows no acute cardiopulmonary process. CT interpreted by me (1pt min.). @ -None done U/S interpreted by me (1pt. min.). @ -None done What testing was considered but not performed or refused? (CT, X-rays, U/S, labs)? Why? @ -None What meds were considered but not given or refused? Why? @ -None Did you discuss the management of the patient with other professionals (professionals i.e. , PA, DOUGH CUTTER, lab, RT, psych nurse, delinquency prevention social worker, unix analyst, teacher, investment officer, sample case porter)? Give summary @ -Dr. Brown for admission Was smoking cessation discussed for >3mins.? @ -No Was critical care preformed (if so, how long)? @ -35 minutes Were there social determinants of health that impacted care today? How? (Homelessness, low income, unemployed, alcoholism, drug addiction, transportation, low edu. Level, literacy, decrease access to med. care, usp, re hab)? @ -No Was there de-escalation of care discussed even if they declined (Discuss DNR or withdrawal of care, Hospice)? DNR status @ -No What co-morbidities impacted this encounter? (DM, HTN, Smoking, COPD, CAD, Cancer, CVA, ARF, Chemo, Hep., AIDS, mental health diagnosis, sleep apnea, morbid obesity)? @ -None Was patient admitted / discharged? Hospital course, mention meds given and route, prescriptions, significant lab abnormalities, going to OR and other pertinent info. @ -Admitted patient presented for new onset A-fib RVR. Patient Undiagnosed new problem with uncertain prognosis? @ -No Drug Therapy requiring intensive monitoring for toxicity (Heparin, Nitro, Insulin, Cardizem)? @ -Cardizem, heparin Were any procedures done? @ -No Diagnosis/symptom? @ -A-fib RVR, new onset A-fib Acute, or Chronic, or Acute on Chronic? @ -Acute Uncomplicated (without systemic symptoms) or Complicated (systemic symptoms)? @ -Complicated Side effects of treatment? @ -No Exacerbation, Progression, or Severe Exacerbation? @ -No Poses a threat to life or bodily function? How? (Chest pain, [place], [place], pneumonia, PE, COPD, DKA, ARF, appy, cholecystitis, CVA, Diverticulitis, Homicidal, Suicidal, threat to staff... and all critical care pts) @ -Yes risk to cardiac function - Lab Data Result diagrams: 07/07/24 10:40 07/07/24 10:40 Lab Results 07/07/24 07/07/24 07/07/24 Range/Units 10:40 10:40 10:40 WBC 6.43 (4.50-10.00) 10*3/uL RBC 4.53 (4.10-5.20) 10*6/uL Hgb 15.2 H (12.0-15.0) g/dL Hct 44.2 (37.2-46.3) % MCV 97.6 H (80.0-97.0) fL MCH 33.6 H (27.0-32.0) pg MCHC 34.4 (32.0-37.0) g/dL Plt Count 370 (140-440) 10*3/uL MPV 8.7 L (9.5-12.2) fL Immature Gran % (Auto) 0.3 % Neutrophils % 73.2 % Lymphocytes % 16.0 % Monocytes % 8.9 % Eosinophils % 1.1 % Basophils % 0.5 % Immature Gran # 0.02 (0.00-0.04) 10*3/uL Neutrophils # 4.71 (1.80-7.70) 10*3/uL Lymphocytes # 1.03 (0.90-5.00) 10*3/uL Monocytes # 0.57 (0.20-1.00) 10*3/uL Eosinophils # 0.07 (0.04-0.35) 10*3/uL Basophils # 0.03 (0.00-0.10) 10*3/uL PT 10.1 (10.0-12.5) sec INR 0.9 (<1.2) APTT 21.6 L (22.0-30.0) sec Sodium 135 L (137-145) mmol/L Potassium 4.1 (3.5-5.1) mmol/L Chloride 98 (98-107) mmol/L Carbon Dioxide 23 (22-30) mmol/L Anion Gap 14 mmol/L BUN 21 H (7-17) mg/dL Creatinine 0.64 (0.52-1.04) mg/dL Est GFR (CKD-EPI)AfAm >90 (>60 ml/min/1.73 sqM) Est GFR (CKD-EPI)NonAf 85 (>60 ml/min/1.73 sqM) Glucose 82 (74-99) mg/dL Calcium 10.3 H (8.4-10.2) mg/dL Magnesium 1.9 (1.6-2.3) mg/dL Total Bilirubin 0.7 (0.2-1.3) mg/dL AST 30 (14-36) U/L ALT 21 (4-34) U/L Alkaline Phosphatase 56 (38-126) U/L Troponin I (0.000-0.034) ng/mL Total Protein 8.1 (6.3-8.2) g/dL Albumin 4.9 (3.5-5.0) g/dL 07/07/24 Range/Units 10:40 WBC (4.50-10.00) 10*3/uL RBC (4.10-5.20) 10*6/uL Hgb (12.0-15.0) g/dL Hct (37.2-46.3) % MCV (80.0-97.0) fL MCH (27.0-32.0) pg MCHC (32.0-37.0) g/dL Plt Count (140-440) 10*3/uL MPV (9.5-12.2) fL Immature Gran % (Auto) % Neutrophils % % Lymphocytes % % Monocytes % % Eosinophils % % Basophils % % Immature Gran # (0.00-0.04) 10*3/uL Neutrophils # (1.80-7.70) 10*3/uL Lymphocytes # (0.90-5.00) 10*3/uL Monocytes # (0.20-1.00) 10*3/uL Eosinophils # (0.04-0.35) 10*3/uL Basophils # (0.00-0.10) 10*3/uL PT (10.0-12.5) sec INR (<1.2) APTT (22.0-30.0) sec Sodium (137-145) mmol/L Potassium (3.5-5.1) mmol/L Chloride (98-107) mmol/L Carbon Dioxide (22-30) mmol/L Anion Gap mmol/L BUN (7-17) mg/dL Creatinine (0.52-1.04) mg/dL Est GFR (CKD-EPI)AfAm (>60 ml/min/1.73 sqM) Est GFR (CKD-EPI)NonAf (>60 ml/min/1.73 sqM) Glucose (74-99) mg/dL Calcium (8.4-10.2) mg/dL Magnesium (1.6-2.3) mg/dL Total Bilirubin (0.2-1.3) mg/dL AST (14-36) U/L ALT (4-34) U/L Alkaline Phosphatase (38-126) U/L Troponin I <0.012 (0.000-0.034) ng/mL Total Protein (6.3-8.2) g/dL Albumin (3.5-5.0) g/dL Critical Care Time Critical Care Time: Yes Total Critical Care Time: 35 Disposition Clinical Impression: New onset a-fib, Atrial fibrillation with RVR Disposition: ADMITTED IP TO THIS [facility] Condition: Fair Referrals: Parish Brantley MD [Primary Care Provider] - 1-2 days Time of Disposition: 12:57
--- NOTE | 2024-07-07 20:40 | P.HPIM ---
History of Present Illness H&P Date: 07/07/24 Chief Complaint: High blood pressure 78-year-old patient follows with Dr. Brantley. Chronic medical conditions include hypertension, hypothyroid. Patient was discovered by her family doctors to have increased blood pressure. He ran an EKG and a 2D echo. 2 days ago. Patient was informed that she was found in atrial fibrillation heart rates 120s. Patient sent into the ER. Patient is rather active and goes for hiking. She did notice that she does get tired and a bit short of breath after walking some distance. No prior cardiac history. No edema. No chest pain. In the ER patient started on IV Cardizem and IV heparin. When I came to see the patient patient had converted to sinus rhythm. Review of systems: GEN.: None EYES: None HEENT: None NECK: None RESPIRATORY: None CARDIOVASCULAR: None GASTROINTESTINAL: None GENITOURINARY: None MUSCULOSKELETAL: None LYMPHATICS: None HEMATOLOGICAL: None PSYCHIATRY: None NEUROLOGICAL: None Social history: . Retired from [employer]. Physical examination: VITAL SIGNS: 97.5, 140, 18, 116 x 74, 98% room air GENERAL: BMI 21.3, reclining bed awake comfortable. EYES: Pupils equal. Conjunctiva mari l. HEENT: External appearance of nose and ears normal, oral cavity grossly normal. NECK: JVD not raised; masses not palpable. HEART: First and second heart sounds are normal; no edema. LUNGS: Respiratory rate normal; clear to auscultation. ABDOMEN: Soft, nontender, liver spleen not palpable, no masses palpable. PSYCH: Alert and oriented x3; mood and affect mari l. MUSCULOSKELETAL:No Clubbing/cyanosis;muscles-grossly intact NEUROLOGICAL: Cranial nerves grossly intact; no facial asymmetry, power and sensation grossly intact. LYMPHATICS: No lymph nodes palpable in the axilla and neck INVESTIGATIONS, reviewed in the clinical context: July 07, 2024: White count 6.4 hemoglobin 15.2 platelets 370 sodium 135 potassium 4.1 BUN 21 creatinine 0.64 Troponin I less than 0.012 x 3 EKG tracing personally reviewed by me-atrial flutter fibrillation with a heart rate of 123 Chest x-ray film personally reviewed by me-hyperinflation Assessment plan: - New onset atrial fibrillation diagnosed on routine checkup 2 days ago. Heart rate that was 120. Given the ER with a heart rate of 140. Patient started on IV Cardizem and earlier today patient reverted to sinus rhythm. Lopressor 25 twice daily. Added. Stop Cardizem drip. Start Eliquis 5 mg twice daily 2D echocardiogram - IV heparin monitoring, now discontinue Protocol was being followed - Essential hypertension Losartan. Lopressor - Hypothyroid Levothyroxine 88 mcg a day Check TSH - Full code Care was discussed with the patient. Past Medical History Past Medical History: Cancer, Hypertension, Thyroid Disorder Additional Past Medical History / Comment(s): BREAST CANCER, History of Any Multi-Drug Resistant Organisms: None Reported Past Surgical History: Breast Surgery, Hysterectomy Additional Past Surgical History / Comment(s): LT BREAST LUMPECTOMY-2005, COLONOSCOPY, A&P repair, eye surgery as child, Past Anesthesia/Blood Transfusion Reactions: No Reported Reaction Past Psychological History: No Psychological Hx Reported Smoking Status: Former smoker Past Alcohol Use History: Occasional Past Drug Use History: None Reported - Past Family History Mother Family Medical History: No Reported History Medications and Allergies Home Medications Medication Instructions Recorded Confirmed Type Levothyroxine Sodium [Synthroid] 88 mcg PO DAILY 07/07/24 07/07/24 History Losartan [Cozaar] 50 mg PO DAILY 07/07/24 07/07/24 History hydroCHLOROthiazide [Hydrodiuril] 25 mg PO DAILY 07/07/24 07/07/24 History Allergies Allergy/AdvReac Type Severity Reaction Status Date / Time No Known Allergies Allergy Verified 07/07/24 12:11 Physical Exam Vitals: Vital Signs Temp Pulse Resp BP Pulse Ox 07/07/24 19:13 76 16 96 07/07/24 18:24 77 16 110/73 96 07/07/24 14:43 68 18 97/67 99 07/07/24 12:10 64 16 111/72 97 07/07/24 11:32 64 16 131/67 99 07/07/24 11:21 62 07/07/24 11:05 80 18 118/76 99 07/07/24 10:15 97.5 F L 140 H 18 116/74 98 Intake and Output 07/07/24 07/07/24 07/07/24 06:59 14:59 22:59 Intake Total 6.042 Balance 6.042 Intake: Intake, IV Titration 6.042 Amount Diltiazem 125 mg In 2.667 Dextrose 5% in Water 100 ml @ 5 MG/HR 5 mls/hr IV .Q24H [facility] Rx#:[id number] Heparin Sod,Pork in 0.45% 3.375 NaCl 25,000 unit In 0.45 % NaCl 1 250ml.bag @ 12 UNITS/KG/HR 6.532 mls/hr IV .Q24H [facility] Rx#: [id number] Other: Weight 54.431 kg Results CBC & Chem 7: 07/07/24 10:40 07/07/24 10:40 Labs: Abnormal Lab Results - Last 24 Hours (Table) 07/07/24 07/07/24 07/07/24 Range/Units 10:40 10:40 10:40 Hgb 15.2 H (12.0-15.0) g/dL MCV 97.6 H (80.0-97.0) fL MCH 33.6 H (27.0-32.0) pg MPV 8.7 L (9.5-12.2) fL APTT 21.6 L (22.0-30.0) sec Sodium 135 L (137-145) mmol/L BUN 21 H (7-17) mg/dL Calcium 10.3 H (8.4-10.2) mg/dL
[2024-07-07] MEDS: METOPROLOL TARTRATE 25 MG TAB PO SCH (20:56)
[2024-07-07] MEDS: APIXABAN 2.5 MG TABLET PO SCH (20:56)
[2024-07-07] MEDS: NICOTINE 21MG/24HR PATCH TRANSDERM SCH (20:57)
[2024-07-07] MEDS ORDERED: APIXABAN 5 MG TAB PO SCH (21:00)
[2024-07-08] MEDS: LEVOTHYROXINE 88 MCG TAB PO SCH (06:17)
[2024-07-08 06:42] LABS: Basophils # (A) 0.02 10*3/uL (0.00-0.10); Basophils % (A) 0.5 %; Eosinophils # (A) 0.12 10*3/uL (0.04-0.35); Eosinophils % (A) 2.8 %; HCT 39.4 % (37.2-46.3); HGB 13.1 g/dL (12.0-15.0); Lymphocytes # (A) 1.05 10*3/uL (0.90-5.00); Lymphocytes % (A) 24.5 %; MCH 32.7 pg (27.0-32.0); MCHC 33.2 g/dL (32.0-37.0); MCV 98.3 fL (80.0-97.0); Mean Platelet Volume 8.5 fL (9.5-12.2); Monocytes # (A) 0.43 10*3/uL (0.20-1.00); Neutrophils # (A) 2.66 10*3/uL (1.80-7.70); Platelet Count 291 10*3/uL (140-440); RBC 4.01 10*6/uL (4.10-5.20); WBC 4.29 10*3/uL (4.50-10.00)
[2024-07-08 06:51] LABS: Prothrombin Time 10.6 sec (10.0-12.5)
[2024-07-08] MEDS: LOSARTAN 50 MG TAB PO SCH (09:06)
[2024-07-08] MEDS: hydroCHLOROthiazide 25 MG TAB PO SCH (09:20)
[2024-07-08 09:26] VITALS: RESP 17
--- NOTE | 2024-07-08 10:09 | P.CRDCN ---
History of Present Illness History of present illness: HISTORY OF PRESENT ILLNESS: This is a 78-year-old female with a past medical history significant for hypertension and hypothyroidism. Patient does not follow with a flaker tender. We have been asked to see the patient in consultation for new onset atrial fibrillation. Patient examined at the bedside. Patient states that her blood pressure has been running high at home. Her PCP ordered an EKG and a echocardiogram to be performed. She states she was called the day after these were completed and told she needed to come to the emergency room as her EKG was abnormal. The patient was found to be in A-fib with RVR. She denies any known history of atrial fibrillation. She was started on IV Cardizem and subsequently converted to sinus mechanism and is maintaining sinus mechanism this morning. She denied feeling any palpitations or lightheadedness. She denies shortness of breath. Denies chest pain or pressure. Patient states that she occasionally consumes alcohol. She is a non-smoker. She states that she is active on an outpatient basis and hikes and does yoga daily. DIAGNOSTICS: - EKG reveals A-fib with RVR. Repeat EKG reveals sinus mechanism.. - Chest xray hyperinflation may relate to depth of inspiration or underlying emphysema. No acute process seen. - Laboratory data: WBC 4.29. Hemoglobin 13.1. Platelet count 291. Sodium 135. Potassium 4.1. BUN 21. Creatinine 0.64. Troponin negative x 3. TSH 0.622. - Current home cardiac medications include losartan 50 mg daily and hydrochlorothiazide 25 mg daily. REVIEW OF SYSTEMS: At the time of my exam: CONSTITUTIONAL: Denies fever or chills. HEENT: Denies blurred vision, vision changes, or eye pain. Denies hemoptysis CARDIOVASCULAR: Denies chest pain. Denies orthopnea. Denies PND. Denies palpitations RESPIRATORY: Denies shortness of breath. GASTROINTESTINAL: Denies abdominal pain. Denies nausea or vomiting. HEMATOLOGIC: Denies bleeding disorders. GENITOURINARY: Denies any blood in urine. SKIN: Denies pruitis. Denies rash. PHYSICAL EXAM: VITAL SIGNS: Reviewed. GENERAL: Well-developed in no acute distress. HEENT: Head is normocephalic. Pupils are equal, round. Sclerae anicteric. Mucous membranes of the mouth are moist. Neck supple. No JVD or thyromegaly LUNGS: Respirations even and unlabored. Lungs essentially clear to auscultation bilaterally. HEART: Regular rate and rhythm. S1 and S2 heard. ABDOMEN: Soft. Nondistended. Nontender. EXTREMITIES: Normal range of motion. No clubbing or cyanosis. Peripheral pulses intact. No lower extremity edema NEUROLOGIC: Awake and alert. Oriented x 3. ASSESSMENT: New onset paroxysmal atrial fibrillation with RVR, currently maintaining sinus mechanism Hypertension Hypothyroidism PLAN: No need to obtain echocardiogram as this was performed this week at [facility]. Will obtain records. Patient has been started on Eliquis 2.5 mg twice a day Continue metoprolol tartrate 25 mg twice a day Continue home cardiac medications Patient may be discharged home today after echocardiogram report has been obtained and reviewed We will plan for outpatient stress testing Will also plan for outpatient event monitor at patient's follow-up appointment with Dr. Lay to assess A-fib burden Patient to follow-up postdischarge in the office with Dr. Lay Nurse practitioner note has been reviewed by physician. Signing provider agrees with the documented findings, assessment, and plan of care documented by ACOUSTICAL LOGGING ENGINEER as a scribe. Past Medical History Past Medical History: Cancer, Hypertension, Thyroid Disorder Additional Past Medical History / Comment(s): BREAST CANCER History of Any Multi-Drug Resistant Organisms: None Reported Past Surgical History: Breast Surgery, Hysterectomy Additional Past Surgical History / Comment(s): LT BREAST LUMPECTOMY-2005, COLONOSCOPY, A&P repair, eye surgery as child, Past Anesthesia/Blood Transfusion Reactions: No Reported Reaction Past Psychological History: No Psychological Hx Reported Smoking Status: Former smoker Past Alcohol Use History: Occasional Additional Past Alcohol Use History / Comment(s): QUIT 1974- SOC[employer] FOR 20 YEARS Past Drug Use History: None Reported - Past Family History Mother Family Medical History: No Reported History Medications and Allergies Home Medications Medication Instructions Recorded Confirmed Type Levothyroxine Sodium [Synthroid] 88 mcg PO DAILY 07/07/24 07/07/24 History Losartan [Cozaar] 50 mg PO DAILY 07/07/24 07/07/24 History hydroCHLOROthiazide [Hydrodiuril] 25 mg PO DAILY 07/07/24 07/07/24 History Allergies Allergy/AdvReac Type Severity Reaction Status Date / Time No Known Allergies Allergy Verified 07/07/24 12:11 Physical Exam Vitals: Vital Signs Temp Pulse Pulse Resp BP BP Pulse Ox 07/08/24 04:19 58 L 16 112/64 95 07/07/24 23:44 60 16 110/68 96 07/07/24 21:34 97.7 F 68 16 145/84 99 07/07/24 20:59 80 18 119/78 97 07/07/24 19:13 76 16 96 07/07/24 18:24 77 16 110/73 96 07/07/24 14:43 68 18 97/67 99 07/07/24 12:10 64 16 111/72 97 07/07/24 11:32 64 16 131/67 99 07/07/24 11:21 62 07/07/24 11:05 80 18 118/76 99 07/07/24 10:15 97.5 F L 140 H 18 116/74 98 Intake and Output 07/07/24 07/08/24 07/08/24 22:59 06:59 14:59 Other: Voiding Method Toilet Toilet # Voids 1 Weight 54.431 kg 54.5 kg Results 07/08/24 06:25 07/07/24 10:40 Cardiac Enzymes 07/07/24 07/07/24 07/07/24 Range/Units 10:40 10:40 13:08 AST 30 (14-36) U/L Troponin I <0.012 <0.012 (0.000-0.034) ng/mL 07/07/24 Range/Units 16:07 AST (14-36) U/L Troponin I <0.012 (0.000-0.034) ng/mL Coagulation 07/07/24 07/07/24 07/08/24 Range/Units 10:40 17:35 06:25 PT 10.1 10.6 (10.0-12.5) sec APTT 21.6 L 22.3 (22.0-30.0) sec CBC 07/07/24 07/08/24 Range/Units 10:40 06: WBC 6.43 4.29 L (4.50-10.00) 10*3/uL RBC 4.53 4.01 L (4.10-5.20) 10*6/uL Hgb 15.2 H 13.1 (12.0-15.0) g/dL Hct 44.2 39.4 (37.2-46.3) % Plt Count 370 291 (140-440) 10*3/uL Comprehensive Metabolic Panel 07/07/24 Range/Units 10:40 Sodium 135 L (137-145) mmol/L Potassium 4.1 (3.5-5.1) mmol/L Chloride 98 (98-107) mmol/L Carbon Dioxide 23 (22-30) mmol/L BUN 21 H (7-17) mg/dL Creatinine 0.64 (0.52-1.04) mg/dL Glucose 82 (74-99) mg/dL Calcium 10.3 H (8.4-10.2) mg/dL AST 30 (14-36) U/L ALT 21 (4-34) U/L Alkaline Phosphatase 56 (38-126) U/L Total Protein 8.1 (6.3-8.2) g/dL Albumin 4.9 (3.5-5.0) g/dL Current Medications Generic Name Dose Route Start Last Admin Trade Name Freq PRN Reason Stop Dose Admin Apixaban 2.5 mg 07/07/24 21:00 07/07/24 20:56 Apixaban 2.5 Mg Tablet PO 2.5 mg BID [place] Administration Protocol Heparin Sodium (Porcine) 0 unit 07/07/24 10:32 Heparin Sodium 1,000 Un/Ml (10ml Vl) IV PER PROTOCOL PRN Low PTT Protocol Levothyroxine Sodium 88 mcg 07/08/24 06:30 07/08/24 06:17 Levothyroxine 88 Mcg Tab PO 88 mcg DAILY@0630 [place] Administration Losartan Potassium 50 mg 07/08/24 09:00 Losartan 50 Mg Tab PO DAILY [place] Metoprolol Tartrate 25 mg 07/07/24 21:00 07/07/24 20:56 Metoprolol Tartrate 25 Mg Tab PO 25 mg BID [place] Administration Nicotine 1 patch 07/07/24 21:00 07/07/24 20:57 Nicotine 21mg/24hr Patch TRANSDERM Not Given DAILY [place] Nitroglycerin 0.4 mg 07/07/24 12:58 Nitroglycerin Sl Tabs 0.4 Mg Tab SUBLINGUAL Q5M PRN Chest Pain Intake and Output 07/07/24 07/08/24 07/08/24 22:59 06:59 14:59 Other: Voiding Method Toilet Toilet # Voids 1 Weight 54.431 kg 54.5 kg 07/08/24 06:25 07/07/24 10:40
[2024-07-08 11:50] VITALS: BP 93/58; PULSE 57; TEMP 98.2
--- NOTE | 2024-07-08 17:09 | P.DS ---
Providers Date of admission: 07/07/24 13:50 Expected date of discharge: 07/08/24 Attending physician: Jared Brown Consults: 07/07/24 12:59 Consult Physician Urgent Consulting Provider: Rdody Lay Consult Reason/Comments: afib Do you want consulting provider notified?: Yes Primary care physician: [facility] Course: Chief Complaint: High blood pressure 78-year-old patient follows with Dr. Brantley. Chronic medical conditions include hypertension, hypothyroid. Patient was discovered by her family doctors to have increased blood pressure. He ran an EKG and a 2D echo. 2 days ago. Patient was informed that she was found in atrial fibrillation heart rates 120s. Patient sent into the ER. Patient is rather active and goes for hiking. She did notice that she does get tired and a bit short of breath after walking some distance. No prior cardiac history. No edema. No chest pain. In the ER patient started on IV Cardizem and IV heparin. When I came to see the patient patient had converted to sinus rhythm. July 08: Patient feeling well.Ambulated in hallway. No chest pain or shortness of breath. Blood pressure running bit lower side. Call back dose of losartan to 25 mg at night. DC hydrochlorothiazide. Also patient's TSH is low normal. Hence we will cut back the Synthroid to 75 mcg. Repeat labs in about 4 weeks. Discussed labs with the patient . Cardiology will review her 2D echocardiogram from the outside facility. Discussion and discharge planning more than 35 minutes Social history: . Retired from [employer]. Physical examination: VITAL SIGNS: 98.2, 57, 17, 93 x 58, 97% room air GENERAL: BMI 21.3, sitting up, comfortable EYES: Pupils equal. Conjunctiva mari l. HEENT: External appearance of nose and ears normal, oral cavity grossly normal. NECK: JVD not raised; masses not palpable. HEART: First and second heart sounds are normal; no edema. LUNGS: Respiratory rate normal; clear to auscultation. ABDOMEN: Soft, nontender, liver spleen not palpable, no masses palpable. PSYCH: Alert and oriented x3; mood and affect mari l. MUSCULOSKELETAL:No Clubbing/cyanosis;muscles-grossly intact INVESTIGATIONS, reviewed in the clinical context: July 08: White count 4.2 hemoglobin 13.1 platelets 291 TSH 0.622 July 07, 2024: White count 6.4 hemoglobin 15.2 platelets 370 sodium 135 potassium 4.1 BUN 21 creatinine 0.64 Troponin I less than 0.012 x 3 EKG tracing personally reviewed by me-atrial flutter fibrillation with a heart rate of 123 Chest x-ray film personally reviewed by me-hyperinflation Assessment plan: -Paroxysmal atrial fibrillation diagnosed on routine checkup 2 days ago. Heart rate that was 120. Given the ER with a heart rate of 140.: Now back to sinus rhythm Patient started on IV Cardizem and earlier today patient reverted to sinus rhythm. Lopressor 25 twice daily. Added. Stop Cardizem drip. Eliquis 2.5 mg twice daily 2D echocardiogram was recently done at outside facility. Follow-up with Dr. Anette Lay - IV heparin monitoring, now discontinue Protocol was being followed - Essential hypertension Losartan cut back to 25 mg nightly. Lopressor 25 mg twice daily DC home dose of hydrochlorothiazide - Hypothyroid, with some over replacement TSH 0.622 Cut back levothyroxine to 75 mcg a day Recheck TSH in 4 to 6 weeks - Full code Disposition: Home Past Medical History Past Medical History: Cancer, Hypertension, Thyroid Disorder Additional Past Medical History / Comment(s): BREAST CANCER, History of Any Multi-Drug Resistant Organisms: None Reported Past Surgical History: Breast Surgery, Hysterectomy Additional Past Surgical History / Comment(s): LT BREAST LUMPECTOMY-2005, COLONOSCOPY, A&P repair, eye surgery as child, Past Anesthesia/Blood Transfusion Reactions: No Reported Reaction Past Psychological History: No Psychological Hx Reported Smoking Status: Former smoker Past Alcohol Use History: Occasional Past Drug Use History: None Reported Plan - Discharge Summary Discharge Rx Participant: Yes New Discharge Prescriptions: New Apixaban [Eliquis] 2.5 mg PO BID #60 tab Levothyroxine Sodium 75 mcg PO DAILY #30 cap Losartan [Cozaar] 25 mg PO HS #30 tab Metoprolol Tartrate [Lopressor] 25 mg PO BID #60 tab Discontinued Losartan [Cozaar] 50 mg PO DAILY hydroCHLOROthiazide [Hydrodiuril] 25 mg PO DAILY Levothyroxine Sodium [Synthroid] 88 mcg PO DAILY Discharge Medication List Apixaban [Eliquis] 2.5 mg PO BID #60 tab 07/08/24 [Rx] Levothyroxine Sodium 75 mcg PO DAILY #30 cap 07/08/24 [Rx] Losartan [Cozaar] 25 mg PO HS #30 tab 07/08/24 [Rx] Metoprolol Tartrate [Lopressor] 25 mg PO BID #60 tab 07/08/24 [Rx] Follow up Appointment(s)/Referral(s): Parish Brantley MD [Primary Care Provider] - 1-2 days (office will call you with appt time) Roddy Lay MD [STAFF PHYSICIAN] - 3 Weeks (office will call you with appt time) Patient Instructions/Handouts: A-fib (Atrial Fibrillation) (DC) Discharge Disposition: HOME SELF-CARE
== END 2024-07-08 12:55 | disposition home or self-care (01) ==
LOC: EC 10:11 → 3SCARD 13:50
PROVIDERS: ADMIT Hospitalist; ATTEND Hospitalist
DX: I48.0 Paroxysmal atrial fibrillation (principal); I10 Essential (primary) hypertension; I48.92 Unspecified atrial flutter; E03.9 Hypothyroidism, unspecified; Z79.890 Hormone replacement therapy; Z79.899 Other long term (current) drug therapy; Z87.891 Personal history of nicotine dependence
CPT/HCPCS: 96376; 96368; 96365; 99291; 36415; 93005; 80053; 84443; 83735; 84484; 85025 ×2; 85610 ×2; 85730; 71046; G0378 ×2; J1644 ×2; 12002